=== PATIENT | female | born 1985 | race Caucasian/White ===

== ENCOUNTER 2019-07-14 19:08 | Emergency (ER) | payer OTHER ==
[~2019-07-14] VITALS: Ht 172.7 cm; Wt 127.0 kg
[2019-07-14 19:11] VITALS: BP 114/93
== END 2019-07-14 19:39 | disposition home or self-care (01) ==
LOC: ER 19:09
DX: J11.1 Influenza due to unidentified influenza virus with other respiratory manifestations (principal); R06.02 Shortness of breath; R52 Pain, unspecified; R50.9 Fever, unspecified; T78.40XA Allergy, unspecified, initial encounter
CPT/HCPCS: 99281